=== PATIENT | male | born 1995 | race Caucasian/White ===

== ENCOUNTER → 2023-09-02 06:34 | Day surgery (SDC) | payer OTHER, SELFPAY | LOC: GI 06:34 | PROVIDERS: ATTENDING PHYSICIAN Internal Medicine Gastroenterology | DX: K91.850 Pouchitis (principal); K62.6 Ulcer of anus and rectum; K62.89 Other specified diseases of anus and rectum; K64.4 Residual hemorrhoidal skin tags; Z98.0 Intestinal bypass and anastomosis status | CPT/HCPCS: 44386; 45331; 88305 ==

== ENCOUNTER 2024-09-21 06:28 | Day surgery (SDC) | payer OTHER, SELFPAY | END 2024-09-21 11:39 | disposition home or self-care (01) | LOC: GI 06:28 | PROVIDERS: ATTENDING PHYSICIAN Internal Medicine Gastroenterology | DX: K64.4 Residual hemorrhoidal skin tags (principal); K64.9 Unspecified hemorrhoids; K91.850 Pouchitis; K52.3 Indeterminate colitis; Z90.49 Acquired absence of other specified parts of digestive tract; Z98.0 Intestinal bypass and anastomosis status | CPT/HCPCS: 44386; 88305 ==